=== PATIENT | male | born 1995 | race African-American/Black ===

== ENCOUNTER 2017-06-22 19:09 | Emergency (ER) | payer OTHER ==
[~2017-06-22] VITALS: Ht 177.8 cm; Wt 76.0 kg
[2017-06-22 19:17] VITALS: TEMP 36.6; Ht 177.8 cm; Wt 76.0 kg
[2017-06-22] MEDS ORDERED: PHEN1PAK PO (19:36)
[2017-06-22] MEDS ORDERED: RANITIDINE HCL 50 MG/100 ML D5W IV STA (19:58)
[2017-06-22] MEDS ORDERED: METHYLPREDNISOLONE 125 MG VIAL IV STA (19:58)
[2017-06-22] MEDS ORDERED: DiphenhydrAMINE HCL 50 MG/ML VIAL IV STA (19:58)
[2017-06-22] MEDS ORDERED: SODIUM CHLORIDE 0.9% 1000ML 1,000 ML IV ONE (20:00)
[2017-06-22 20:18] VITALS: O2SAT 99
--- NOTE | 2017-06-22 20:22 | EMERGENCY ROOM VISIT NOTE ---
History First contact with patient: 19:43 Chief Complaint: ALLERGIC REACTION Stated Complaint: RASH,REDNESS,SWELLING Nursing Triage Summary: rash on arms, back, face History of Present Illness The patient is a 22 year old male who presents to the Emergency Room with complaints of an allergic reaction that started last night. The patient says that he has a rash particularly on his arms that are very itchy. He also noticed some spots on his face upon returning to his apartment this evening. He denies any difficulty swallowing or difficulty breathing. He denies any known medical allergies. The patient had a viral illness with a sore throat that started 8 days ago. His symptoms resolved on their own 2 days ago. He did take some Tylenol last night, however he has taken Tylenol in the past. He does note that his symptoms began last night when he laid down in bed. When he laid down in his bed this afternoon, his symptoms again returned. He denies any new soaps, lotions or detergents. He has been in his current apartment for 3 weeks. No new roommates. He denies any new foods. Review of Systems 10 system review performed and negative unless noted in HPI or below Past Medical/Surgical History Seasonal allergies Family History No family history reported Social History Smoking Status: Current Some Day Smoker Alcohol Use: occasionally Marital Status: single Occupation Status: [employer] student Current/Historical Medications Scheduled Phenylephrine-Chlorpheniramine (Tylenol Cold Plus Flu Sev), 1 DOSE PO DIRECTED Prednisone (Prednisone), 50 MG PO DAILY Ranitidine (Zantac), 150 MG PO BID Physical Exam Vital Signs Date Time Temp Pulse Resp B/P (MAP) Pulse Ox O2 Delivery O2 Flow Rate FiO2 06/22/17 22:02 62 18 128/72 98 06/22/17 21:34 76 24 99 06/22/17 21:30 132/85 06/22/17 21:29 71 25 100 06/22/17 21:24 69 23 99 06/22/17 21:19 63 14 100 06/22/17 21:14 68 22 99 06/22/17 21:09 68 20 99 06/22/17 21:04 71 22 98 06/22/17 21:00 132/74 06/22/17 20:59 73 21 97 06/22/17 20:57 138/83 06/22/17 20:54 75 21 97 06/22/17 20:49 66 22 97 06/22/17 20:44 69 22 99 06/22/17 20:39 70 21 97 06/22/17 20:34 66 24 100 06/22/17 20:31 138/83 06/22/17 20:29 67 18 99 06/22/17 20:24 73 13 100 06/22/17 20:22 66 06/22/17 20:18 146/79 06/22/17 20:18 99 Room Air 06/22/17 19:23 95 Room Air 06/22/17 19:17 36.6 110 18 117/81 99 Room Air Physical Exam VITALS: Vitals are noted on the nurse's note and reviewed by myself. Vital signs stable. GENERAL: A 22-year-old male, in no acute distress, nondiaphoretic, well- developed well-nourished. SKIN: Urticaria present particularly on the volar aspect of the arms bilaterally. Scratch hanna noted. HEAD: Normocephalic atraumatic. No swelling on the face noted. EYES: Conjunctivae without injection, sclerae without icterus. Extraocular movements intact. MOUTH: Mucous membranes moist. Tonsils are not enlarged. Pharynx without erythema or exudate. Uvula midline. Airway patent. Tongue does not deviate. NECK: Supple without nuchal rigidity. No lymphadenopathy. HEART: Regular rate and rhythm without murmurs gallops or rubs. LUNGS: Clear to auscultation bilaterally without wheezes, rales or rhonchi. No accessory muscle use. MUSCULOSKELETAL: No muscle atrophy, erythema, or edema noted. Normal gait. Strength 5/5 throughout. NEURO: Patient was alert and oriented to person place and time. Normal sensation to touch. No focal neurological deficits. Medical Decision & Procedures Medications Administered Medications (Trade) Dose Ordered Sig/Bong Route Start Time Stop Time Status Last Admin Dose Admin Methylprednisolone Sodium Succinate (Solu-Medrol IV) 125 mg NOW STAT IV 06/22/17 19:58 06/22/17 20:00 DC 06/22/17 20:11 125 MG Ranitidine HCl (zANTac IV) 50 mg NOW STAT IV 06/22/17 19:58 06/22/17 20:00 DC 06/22/17 20:10 50 MG Diphenhydramine HCl (Benadryl Inj) 25 mg NOW STAT IV 8/8/17 19:58 06/22/17 20:00 DC 06/22/17 20:11 25 MG Sodium Chloride 1,000 ml @ 999 mls/hr Q1H1M ONCE IV 06/22/17 20:00 06/22/17 21:00 DC 06/22/17 20:11 999 MLS/HR ED Course Patient was seen and examined Vital signs including blood pressure were reviewed medications list was verified with patient The patient was given Zantac 50 mg IV, Benadryl 25 mg IV and Solu-Medrol 125 g IV. He was hydrated with 1 L of normal saline. He was monitored for approximately 2 hours in the emergency department. The patient's rash much improved. He had no further swelling or rash on his face. Vital signs remain stable. I reviewed discharge instructions the patient. They voiced understanding and had no further questions. Medical Decision Differential diagnosis: Allergic reaction, anaphylaxis, angioedema, viral exanthem This patient is a 22-year-old male presents emergency department with complaints of a very itchy rash and swelling to his face. He is unsure of the exposure. Clinical exam is consistent with an allergic reaction. There are no signs of angioedema. No signs of anaphylaxis. The patient was treated in the emergency department with steroids, Zantac and Benadryl. He had good symptomatic relief. His rash dissipated while in the emergency department. The patient was discharged with a course of steroids, Zantac and Benadryl. He agreed to return to the emergency department with any new or worsening symptoms such as difficulty breathing, swallowing, worsening rash or dizziness. Medication Reconcilliation Current Medication List: was personally reviewed by me Blood Pressure Screening Patient's blood pressure: Normal blood pressure Impression Primary Impression: Allergic reaction Departure Information Dispostion Home / Self-Care Condition GOOD Prescriptions Ranitidine (Zantac) 150 Mg Tab 150 MG PO BID for 4 Days, #8 TAB Prov: Amna Baca PA-C 06/22/17 Prednisone (PREDNISONE) 50 Mg Tab 50 MG PO DAILY for 4 Days, TAB Prov: Amna Baca PA-C 06/22/17 Referrals No Doctor, Assigned (PCP) Patient Instructions ED Allerg React Other General , My [facility] Additional Instructions You were evaluated in the emergency department tonight for an allergic reaction. Please take the entire course of prednisone and Zantac as prescribed Please take Benadryl 25 mg 1 tablet every 8 hours for the next 24 hours. Then, it may be taken every 8 hours as needed for itching Avoid getting overheated as this will make the rash worse. Please follow-up with your primary care physician or [facility] within one week for a recheck Return to the emergency department if you have any of the following symptoms: -Worsening rash -Difficulty breathing -Severe dizziness -Swelling of the lips, face or tongue -Difficulty swallowing
[2017-06-22] MEDS ORDERED: PRED50TA PO (21:43)
[2017-06-22] MEDS ORDERED: ZNTT/150 PO (21:43)
[2017-06-22 22:02] VITALS: BP 128/72; PULSE 62; O2SAT 98
== END 2017-06-22 22:04 | disposition home or self-care (01) ==
LOC: C.EDB 19:11 → C.EDA 22:04
DX: T78.40XA Allergy, unspecified, initial encounter (principal); X58.XXXA Exposure to other specified factors, initial encounter; F17.210 Nicotine dependence, cigarettes, uncomplicated